=== PATIENT | female | born 1985 | race Caucasian/White ===

== ENCOUNTER → 2016-10-04 | Outpatient (REF) | payer BC | LOC: M LAB REF 16:53 | PROVIDERS: ATTEND Advanced Practice Midwife | DX: Z12.4 Encounter for screening for malignant neoplasm of cervix (principal) ==

== ENCOUNTER → 2016-11-19 | Outpatient (CLI) | payer BC ==
[2016-11-19 09:45] LABS: BASO % 0.2 % (0.0-1.0); EOS % 0.8 % (0.0-3.0); LARGE UNSTAINED CELL # 0.1 K/mm3 (0.0-0.4); LARGE UNSTAINED CELL % 1.5 % (0.0-4.0); LYMPH # 1.8 K/mm3 (1.5-6.5); LYMPH % 30.8 % (24.0-44.0); MEAN CORPUSCULAR HEMOGLOBIN 30.8 pg (27.0-33.0); MEAN CORPUSCULAR VOLUME 90.4 fl (80.0-96.0); MONO # 0.4 K/mm3 (0.0-0.8); MONO % 6.8 % (0.0-5.0); NEUTROPHILS # 3.4 K/mm3 (1.8-7.7); NEUTROPHILS % 59.9 % (36.0-66.0); PLATELET COUNT, AUTOMATED 311 k/mm3 (150-450); RED CELL DISTRIBUTION WIDTH 12.7 % (11.5-14.5); WHITE BLOOD COUNT 5.7 K/mm3 (4.0-10.0)
[2016-11-19 10:25] LABS: HBsAg Prenatal NEGATIVE (NEGATIVE)
== END ==
LOC: M LAB 08:42
PROVIDERS: ATTEND Advanced Practice Midwife
DX: Z36 Encounter for antenatal screening of mother (principal); Z3A.00 Weeks of gestation of pregnancy not specified

== ENCOUNTER → 2017-02-02 | Outpatient (CLI) | payer BC | LOC: M SMT 08:46 | PROVIDERS: ATTEND Specialist | DX: Z13.79 Encounter for other screening for genetic and chromosomal anomalies (principal) ==

== ENCOUNTER → 2017-02-25 | Outpatient (CLI) | payer BC ==
--- NOTE | 2017-02-25 10:02 | REP ---
Obstetric ultrasound for anatomy: There is a single intrauterine gestation in a breech presentation. There is movement and cardiac activity. The heart rate is 139 beats per minute. Placenta is anterior. There is no placenta previa or abruptio. The placenta is grade zero. The amniotic fluid volume subjectively is normal. This cervix measures 4.9 cm length. Gestational Age: By LMP: 19 w for d By Today's US: 20 w 2 d Weight: 349 gm/ 12th lbs, zero oz Wt 75 %ile for at 19 w 4 d The following anatomic structures are identified and are old. Intracranial lateral ventricles, choroid plexus, cerebellum, upper lip, lungs, diaphragm, stomach, cord insertion, three-vessel cord, kidneys, bladder, spine and upper lower extremities. Suboptimally demonstrated are the four-chamber view of the heart and the cardiac right and left ventricular outflow tracts. There is an echogenic focus within the left ventricle, likely artifact from the chorda tendineae. Followup study to reevaluate this suboptimally demonstrated anatomic structures might be considered. Otherwise, there are no anomalies. Signed by Sandro Molina MD 02/25/2017 09:54 A
== END ==
LOC: M RAD 06:39
PROVIDERS: ATTEND Specialist
DX: Z36.89 Encounter for other specified antenatal screening (principal); Z3A.20 20 weeks gestation of pregnancy

== ENCOUNTER → 2017-03-14 | Outpatient (CLI) | payer BC ==
--- NOTE | 2017-03-14 08:36 | REP ---
Clinical: Anatomical re-evaluation. Comparison: 02/25/2017 . Findings: Examination demonstrates a single live intrauterine in cephalic presentation. motion is identified by technologist. Placenta is noted anteriorly and grade zero without evidence for placenta previa or abruption. Amniotic fluid volume is normal. Cervix measures 3.8 cm in length and appears closed. Nuchal cord cannot be excluded. Gestational age by LMP 22 weeks 0 days with MARK 07/18/2017 . Gestational age by current measurements 22 weeks 5 days with MARK 07/13/2017. FHR equals 157 beats per minute. Estimated weight 539 grams ( 74th percentile). Anatomical assessment demonstrates normal structures including cranium, choroid plexus, cavum, cerebellum/posterior fossa, facial features, lungs, four-chamber heart/ventricular outflow tracts, diaphragm, stomach, cord insertion/three-vessel cord, kidneys/bladder, and spine. Impression: 1. Single live intrauterine in cephalic presentation demonstrating appropriate interval growth. Nuchal cord cannot be excluded. 2. Prominent chordae tendineae again noted. 3. In conjunction with prior examination anatomical assessment is otherwise complete and normal. Signed by Long Noel MD 03/14/2017 08:27 A
== END ==
LOC: M RAD 07:07
PROVIDERS: ATTEND Specialist
DX: Z34.80 Encounter for supervision of other normal pregnancy, unspecified trimester (principal)

== ENCOUNTER → 2017-03-31 | Outpatient (REF) | payer BC | LOC: M LAB REF 13:41 | PROVIDERS: ATTEND Advanced Practice Midwife | DX: Z34.83 Encounter for supervision of other normal pregnancy, third trimester (principal) ==

== ENCOUNTER → 2017-04-13 | Outpatient (CLI) | payer BC ==
[2017-04-13 13:33] LABS: MEAN CORPUSCULAR HEMOGLOBIN 29.7 pg (27.0-33.0); MEAN CORPUSCULAR HGB CONC 32.3 g/dl (32.0-36.5); MEAN CORPUSCULAR VOLUME 91.9 fl (80.0-96.0); PLATELET COUNT, AUTOMATED 331 10^3/uL (150-450); RED CELL DISTRIBUTION WIDTH 13.4 % (11.5-14.5); WHITE BLOOD COUNT 10.1 10^3/uL (4.0-10.0)
== END ==
LOC: M SMT 08:27
PROVIDERS: ATTEND Advanced Practice Midwife
DX: Z36.89 Encounter for other specified antenatal screening (principal); Z3A.00 Weeks of gestation of pregnancy not specified

== ENCOUNTER → 2017-04-15 | Outpatient (CLI) | payer BC | LOC: M LAB 07:09 | PROVIDERS: ATTEND Specialist | DX: Z34.83 Encounter for supervision of other normal pregnancy, third trimester (principal); Z3A.00 Weeks of gestation of pregnancy not specified ==

== ENCOUNTER → 2017-06-23 | Outpatient (REF) | payer BC | LOC: M LAB REF 13:04 | DX: Z36.85 Encounter for antenatal screening for Streptococcus B (principal); Z3A.00 Weeks of gestation of pregnancy not specified | CPT/HCPCS: 87081 ==

== ENCOUNTER 2017-07-13 07:47 | Inpatient (IN) | payer BC ==
[2017-07-13] MEDS ORDERED: FENTANYL 2MCG/ML ROPIVACAINE 0.2% IN 0.9% NACL 200ML IVBAG As Ordered (08:59)
[2017-07-13] MEDS ORDERED: LR 1,000 ML IV (09:00)
[2017-07-13 09:14] LABS: HEMATOCRIT 35.9 % (36.0-47.0); HEMOGLOBIN 12.2 g/dl (12.0-16.0); MEAN CORPUSCULAR HEMOGLOBIN 29.8 pg (27.0-33.0); MEAN CORPUSCULAR VOLUME 87.8 fl (80.0-96.0); PLATELET COUNT, AUTOMATED 218 10^3/uL (150-450); RED BLOOD COUNT 4.09 10^6/uL (4.00-5.40); RED CELL DISTRIBUTION WIDTH 14.4 % (11.5-14.5); WHITE BLOOD COUNT 15.5 10^3/uL (4.0-10.0)
[2017-07-13 09:42] LABS: AMPHETAMINES URINE REFLEX NEGATIVE (NEGATIVE); BARBITURATES URINE REFLEX NEGATIVE (NEGATIVE); BENZODIAZEPINES URINE REFLEX NEGATIVE (NEGATIVE); CANNABINOIDS URINE REFLEX NEGATIVE (NEGATIVE); COCAINE METABOLITE URINE REFLE NEGATIVE (NEGATIVE); METHADONE URINE REFLEX NEGATIVE (NEGATIVE); OPIATES URINE REFLEX NEGATIVE (NEGATIVE); PHENCYCLIDINE URINE REFLEX NEGATIVE (NEGATIVE)
[2017-07-13 09:43] LABS: TOTAL PROTEIN,RANDOM URINE 48.1 MG/DL (0.0-12.0)
[2017-07-13 09:44] LABS: ALT/SGPT 30 U/L (12-78); AST/SGOT 24 U/L (7-37); BILIRUBIN,TOTAL 0.3 MG/DL (0.2-1.0); GLOMERULAR FILTRATION RATE > 60.0 (>60); LDH LACTATE DEHYDROGENASE 221 U/L (84-246); URIC ACID 3.4 MG/DL (2.6-6.0)
[2017-07-13] MEDS ORDERED: diphenhydrAMINE INJ 50MG/ML VIAL (J1200) IV (11:30)
[2017-07-13] MEDS ORDERED: ONDANSETRON 4MG/2ML VIAL (J2405) IV ×2 (11:30→15:15)
[2017-07-13] MEDS ORDERED: REFRIGERATOR IV KEYS XX (11:30)
[2017-07-13] MEDS ORDERED: EPIDURAL COMMENT XX (11:30)
[2017-07-13] MEDS ORDERED: ePHEDrine SULFATE 25 MG/5 ML(5MG/ML) SYRINGE IV (11:30)
[2017-07-13] MEDS ORDERED: EPIDURAL/PCA KEYS XX (11:30)
[2017-07-13] MEDS ORDERED: LACTATED RINGER'S 1000 ML IV (11:30)
[2017-07-13] MEDS ORDERED: FENTANYL/ROPIVACAINE/NACL BAG 200 ML EPIDURAL (11:30)
[2017-07-13] MEDS ORDERED: NALOXONE INJ 0.4 MG/1 ML VIAL (J2310) IV (11:30)
[2017-07-13] MEDS: OXYTOCIN DRIP 30 UNITS in APPROPRIATE DILUENT 1 EA IV ×2 (11:40→19:11)
[2017-07-13] MEDS ORDERED: METHYLERGONOVINE MALEATE 0.2 MG TAB PO (15:15)
[2017-07-13] MEDS ORDERED: ACETAMINOPHEN 500 MG TAB PO (15:15)
[2017-07-13] MEDS ORDERED: MEASLES,MUMPS,RUBELLA VACCINE INJ (MMR-II) (90707) SC (15:15)
[2017-07-13] MEDS ORDERED: DOCUSATE SODIUM 100 MG CAP PO (15:15)
[2017-07-13] MEDS ORDERED: RHOGAM 300 MCG (1500 IU) INJ (J2790) IM (15:15)
[2017-07-13] MEDS: LACTATED RINGER'S 1000 ML IV (19:10)
[2017-07-13] MEDS: PRENATAL VITAMINS CHEWABLE TABLET PO (19:10)
[2017-07-14] MEDS: IBUPROFEN 800 MG TAB PO ×2 (07:57→17:58)
[2017-07-14] MEDS: PRENATAL VITAMINS CHEWABLE TABLET PO (07:57)
[2017-07-14] MEDS: DIBUCAINE 1% OINTMENT 30GM TOP (07:57)
[2017-07-15] MEDS: PRENATAL VITAMINS CHEWABLE TABLET PO (09:12)
[2017-07-15] MEDS: IBUPROFEN 800 MG TAB PO (09:14)
== END 2017-07-15 11:25 | disposition home or self-care (01) | DRG 560 ==
LOC: M LDO 07:47 → M LDI 08:35 → M OBS 16:35
PROC: 10E0XZZ Delivery of Products of Conception, External Approach (ICD-10-PCS; principal; 2017-07-13)
PROC: 0HQ9XZZ Repair Perineum Skin, External Approach (ICD-10-PCS; 2017-07-13)
DX: O70.0 First degree perineal laceration during delivery (principal); Z37.0 Single live birth; Z3A.39 39 weeks gestation of pregnancy

== ENCOUNTER → 2018-11-28 | Outpatient (REF) | payer BC ==
[~2018-11-28] MED LIST: MOTR200T44 PO; PRENTAB7 PO; TYLE500T78 PO
[2018-11-30 14:08] LABS: HPV HYBRID CAPTURE II Negative (Negative)
== END ==
LOC: M LAB REF 16:53
PROVIDERS: ATTEND Advanced Practice Midwife
DX: Z12.4 Encounter for screening for malignant neoplasm of cervix (principal)

== ENCOUNTER 2019-01-11 15:22 | Emergency (ER) | payer BC ==
[~2019-01-11] VITALS: Ht 165.1 cm; Wt 62.3 kg
[2019-01-11 16:15] LABS: BASO % 0.4 % (0.0-1.0); EOS # 0.1 10^3/uL (0.0-0.5); EOS % 0.7 % (0.0-3.0); HEMOGLOBIN 13.9 g/dl (12.0-15.5); LYMPH # 2.4 10^3/uL (1.5-5.0); LYMPH % 31.6 % (24.0-44.0); MEAN CORPUSCULAR HEMOGLOBIN 30.1 pg (27.0-33.0); MEAN CORPUSCULAR HGB CONC 33.1 g/dl (32.0-36.5); MEAN CORPUSCULAR VOLUME 90.9 fl (80.0-96.0); MONO # 0.5 10^3/uL (0.0-0.8); MONO % 7.1 % (0.0-5.0); NEUTROPHILS # 4.6 10^3/uL (1.5-8.5); NEUTROPHILS % 59.9 % (36.0-66.0); PLATELET COUNT, AUTOMATED 310 10^3/uL (150-450); RED BLOOD COUNT 4.62 10^6/uL (4.00-5.40); WHITE BLOOD COUNT 7.6 10^3/uL (4.0-10.0)
[2019-01-11 16:43] LABS: BLOOD UREA NITROGEN 12 MG/DL (7-18); CALCIUM LEVEL 9.7 MG/DL (8.5-10.1); CARBON DIOXIDE LEVEL 24 MEQ/L (21-32); CHLORIDE LEVEL 104 MEQ/L (98-107); CREATININE FOR GFR 0.64 MG/DL (0.55-1.30); GLOMERULAR FILTRATION RATE > 60.0 (>60); GLUCOSE, FASTING 84 MG/DL (70-100); POTASSIUM SERUM 3.8 MEQ/L (3.5-5.1); SODIUM LEVEL 141 MEQ/L (136-145)
[2019-01-11 17:47] LABS: HCG, SERUM QUANTITATIVE 12375 MIU/ML
[2019-01-11 19:36] VITALS: BP 135/72
--- NOTE | 2019-01-11 19:59 | REPVR ---
EXAM: US First Trimester, Transabdominal and US , Transvaginal EXAM DATE/TIME: 01/11/2019 6:30 PM CLINICAL HISTORY: 33 years old, female; Lmp or gestational age (in weeks): 8w 4d; Antepartum complications; Bleeding; ; Additional info: Vaginal bleeding during preg TECHNIQUE: Imaging protocol: Real-time transabdominal obstetrical ultrasound of the maternal pelvis and a first trimester , less than 14 weeks 0 days, with image documentation. Transvaginal imaging was used for better evaluation of the fetus and adnexa. COMPARISON: US OBS FOLL UP OR REPEAT EACH GES 03/14/2017 7:16 AM FINDINGS: GESTATION: Gestation: Endovaginally, there is a teardrop shaped fluid collection within the endometrial canal measuring 1.9 x 3.1 x 2 cm. . There is a yolk sac with an inner diameter of 0.54 cm. Heart rate: No cardiac activity was noted in the pole. BIOMETRY: Helper-Rump length: There is a pole with a crown-rump length measurement of 0.93 cm for a menstrual age of 7 weeks and 0 days. MATERNAL: Uterus: Transabdominally, the bladder is poorly distended which limits visualization of the uterus and adnexa. Transabdominally, there is a fluid collection noted within the endometrial canal. Cervix: Unremarkable. Right adnexa: Endovaginally, the right ovary measures 1.9 x 3.2 x 2.2 cm and contains a complex follicle with a corpus luteum cyst measuring 2.1 cm in maximum diameter. Peripheral vascularity noted within the margins of a corpus luteum cyst. Left adnexa: Endovaginally, the left ovary measures 3.6 x 1.1 x 1 cm. blood flow demonstrated in the left ovary on color Doppler examination. Intraperitoneal: No intraperitoneal free fluid. IMPRESSION: 1. Single intrauterine with estimated menstrual age of 7 weeks and 1 day . Abnormal shape of the gestational sac and absence of cardiac activity suggests demise. Correlate with the serum beta hCG trend Electronically signed by: Gail Gotti On 01/11/2019 19:59:32 PM
== END 2019-01-11 19:37 | disposition home or self-care (01) ==
LOC: M ED 15:22
DX: O02.1 Missed abortion (principal)

== ENCOUNTER → 2019-01-11 | Outpatient (CLI) | payer BC | LOC: M SMT 09:30 | PROVIDERS: ATTEND Obstetrics & Gynecology | DX: O20.0 Threatened abortion (principal) ==

== ENCOUNTER → 2019-01-13 | Outpatient (CLI) | payer BC | LOC: M LAB 08:05 | PROVIDERS: ATTEND Obstetrics & Gynecology | DX: O20.0 Threatened abortion (principal); Z3A.00 Weeks of gestation of pregnancy not specified ==

== ENCOUNTER → 2019-01-19 | Outpatient (CLI) | payer BC | LOC: M SMT 09:07 | PROVIDERS: ATTEND Advanced Practice Midwife | DX: O03.4 Incomplete spontaneous abortion without complication (principal) ==

== ENCOUNTER → 2019-01-25 | Outpatient (CLI) | payer BC | LOC: M SMT 09:41 | PROVIDERS: ATTEND Advanced Practice Midwife | DX: O03.4 Incomplete spontaneous abortion without complication (principal) ==

== ENCOUNTER → 2019-02-01 | Outpatient (CLI) | payer BC | LOC: M SMT 09:20 | PROVIDERS: ATTEND Advanced Practice Midwife | DX: O03.4 Incomplete spontaneous abortion without complication (principal) ==

== ENCOUNTER → 2019-04-17 | Outpatient (REF) | payer OTHER | LOC: M PLALAB 09:38 | PROVIDERS: ATTEND Specialist | DX: O03.9 Complete or unspecified spontaneous abortion without complication (principal) ==

== ENCOUNTER → 2019-04-19 | Outpatient (CLI) | payer BC | LOC: M PLALAB 15:23 | PROVIDERS: ATTEND Specialist | DX: O03.9 Complete or unspecified spontaneous abortion without complication (principal) ==

== ENCOUNTER → 2019-04-27 | Outpatient (CLI) | payer BC | LOC: M PLALAB 10:43 | PROVIDERS: ATTEND Specialist | DX: O03.9 Complete or unspecified spontaneous abortion without complication (principal) ==

== ENCOUNTER → 2019-06-12 | Outpatient (CLI) | payer BC | LOC: M PLALAB 13:13 | PROVIDERS: ATTEND Specialist | DX: N92.6 Irregular menstruation, unspecified (principal) ==

== ENCOUNTER → 2019-06-14 | Outpatient (CLI) | payer BC | LOC: M PLALAB 13:43 | PROVIDERS: ATTEND Specialist | DX: N92.6 Irregular menstruation, unspecified (principal) ==

== ENCOUNTER → 2019-06-25 | Outpatient (CLI) | payer BC | LOC: M PLALAB 13:14 | PROVIDERS: ATTEND Specialist | DX: Z00.00 Encounter for general adult medical examination without abnormal findings (principal) ==

== ENCOUNTER → 2020-01-14 | Outpatient (CLI) | payer BC | LOC: M PLALAB 13:44 | PROVIDERS: ATTEND Specialist | DX: O20.0 Threatened abortion (principal); Z3A.00 Weeks of gestation of pregnancy not specified ==

== ENCOUNTER → 2020-01-16 | Outpatient (CLI) | payer BC | LOC: M PLALAB 13:47 | PROVIDERS: ATTEND Specialist | DX: O20.0 Threatened abortion (principal) ==

== ENCOUNTER → 2020-02-18 | Outpatient (CLI) | payer BC ==
[2020-02-18 15:52] LABS: FREE T4 0.96 NG/DL (0.76-1.46); THYROID STIMULATING HORMONE 1.61 uIU/ML (0.358-3.740)
[2020-02-20 12:52] LABS: DRVV SCREEN 36.3 SEC; PTT LUPUS TYPE ANTICOAG SCREEN 0.9 (0-1.2)
[2020-02-25 13:07] LABS: ANTI THROMBIN 3 ANTIGEN IMMUNO 88 % (72-124); ANTI THROMBIN 3 FUNCT ACTIVITY 111 % (75-135); CARDIOLIPIN IGA ANTIBODY <9 APL U/mL (0-11); CARDIOLIPIN IGG ANTIBODY <9 GPL U/mL (0-14); CARDIOLIPIN IGM ANTIBODY 10 MPL U/mL (0-12); PROTEIN C ANTIGEN 91 % (60-150); PROTEIN C FUNCTIONAL ACTIVITY 108 % (73-180); PROTEIN S ANTIGEN FREE 71 % (57-157); PROTEIN S ANTIGEN TOTAL 83 % (60-150); PROTEIN S FUNCTIONAL ACTIVITY 103 % (63-140)
== END ==
LOC: M PLALAB 10:49
PROVIDERS: ATTEND Advanced Practice Midwife
DX: N96 Recurrent pregnancy loss (principal)
CPT/HCPCS: 36415; 84439; 84443; 85300; 85301; 85302; 85303; 85305; 85306; 85730; 86147; 87624; G0123

== ENCOUNTER → 2020-03-19 | Outpatient (REF) | payer BC | LOC: M PLALAB 13:45 | PROVIDERS: ATTEND Advanced Practice Midwife | DX: N91.2 Amenorrhea, unspecified (principal) ==

== ENCOUNTER → 2020-03-21 | Outpatient (CLI) | payer BC | LOC: M PLALAB 13:47 | PROVIDERS: ATTEND Specialist | DX: O20.0 Threatened abortion (principal); Z3A.00 Weeks of gestation of pregnancy not specified ==

== ENCOUNTER → 2020-03-25 | Outpatient (REF) | payer BC | LOC: M PLALAB 11:19 | PROVIDERS: ATTEND Advanced Practice Midwife | DX: N96 Recurrent pregnancy loss (principal) ==

== ENCOUNTER → 2020-04-01 | Outpatient (REF) | payer BC | LOC: M PLALAB 13:20 | PROVIDERS: ATTEND Advanced Practice Midwife | DX: N96 Recurrent pregnancy loss (principal) ==

== ENCOUNTER → 2020-04-03 | Outpatient (REF) | payer BC | LOC: M PLALAB 15:38 | PROVIDERS: ATTEND Advanced Practice Midwife | DX: N96 Recurrent pregnancy loss (principal) ==

== ENCOUNTER → 2020-04-09 | Outpatient (REF) | payer BC | LOC: M PLALAB 08:26 | PROVIDERS: ATTEND Advanced Practice Midwife | DX: O20.0 Threatened abortion (principal); Z53.9 Procedure and treatment not carried out, unspecified reason ==

== ENCOUNTER → 2020-05-09 | Outpatient (REF) | payer BC ==
[2020-05-09 15:39] LABS: HEMATOCRIT 38.8 % (36.0-47.0); HEMOGLOBIN 12.7 g/dl (12.0-15.5); MEAN CORPUSCULAR HEMOGLOBIN 29.7 pg (27.0-33.0); MEAN CORPUSCULAR HGB CONC 32.7 g/dl (32.0-36.5); MEAN CORPUSCULAR VOLUME 90.7 fl (80.0-96.0); PLATELET COUNT, AUTOMATED 362 10^3/uL (150-450); RED BLOOD COUNT 4.28 10^6/uL (4.00-5.40); WHITE BLOOD COUNT 8.5 10^3/uL (4.0-10.0)
[2020-05-09 17:09] LABS: HEPATITIS C VIRUS ABY INDEX 0.2 INDEX (<0.8); HIV 1&2 SCREEN CENTAUR NEGATIVE (NEGATIVE)
[2020-05-09 18:03] LABS: CHLAMYDIA DNA AMPLIFICATION NEGATIVE (NEGATIVE); GC DNA AMPLIFICATION NEGATIVE (NEGATIVE)
== END ==
LOC: M PLALAB 13:49
PROVIDERS: ATTEND Advanced Practice Midwife
DX: Z34.91 Encounter for supervision of normal pregnancy, unspecified, first trimester (principal)

== ENCOUNTER → 2020-05-19 | Outpatient (REF) | payer BC | LOC: M SFHCWAGY 17:05 | PROVIDERS: ATTEND Advanced Practice Midwife | DX: O26.899 Other specified pregnancy related conditions, unspecified trimester (principal) ==

== ENCOUNTER → 2020-06-03 | Outpatient (CLI) | payer BC | LOC: M WHC 17:49 | PROVIDERS: ATTEND Obstetrics & Gynecology | DX: Z34.92 Encounter for supervision of normal pregnancy, unspecified, second trimester (principal); Z3A.14 14 weeks gestation of pregnancy; Z53.9 Procedure and treatment not carried out, unspecified reason ==

== ENCOUNTER → 2020-06-06 | Outpatient (REF) | payer BC | LOC: M SFHCWAGY 13:13 | PROVIDERS: ATTEND Advanced Practice Midwife | DX: O26.22 Pregnancy care for patient with recurrent pregnancy loss, second trimester (principal) ==

== ENCOUNTER → 2020-06-19 | Outpatient (REF) | payer BC ==
[2020-06-20 14:04] LABS: APPEARANCE, URINE CLEAR (CLEAR); BACTERIA, URINE AUTO NEGATIVE (NEGATIVE); BILIRUBIN, URINE AUTO NEGATIVE (NEGATIVE); BLOOD, URINE BLOOD NEGATIVE (NEGATIVE); COLOR, URINE YELLOW (YELLOW); GLUCOSE, URINE (UA) AUTO NEGATIVE (NEGATIVE); KETONE, URINE AUTO NEGATIVE (NEGATIVE); LEUKOCYTE ESTERASE, URINE AUTO NEGATIVE (NEGATIVE); NITRITE, URINE AUTO NEGATIVE (NEGATIVE); PROTEIN, URINE AUTO NEGATIVE (NEGATIVE); RBC, URINE AUTO 1 /HPF (0-3); SPECIFIC GRAVITY URINE AUTO 1.016 (1.002-1.035); SQUAMOUS EPITHELIAL CELL UR AU 0 /HPF (0-6); UROBILINOGEN, URINE AUTO 0.2 mg/dL (0.0-2.0); WBC, URINE AUTO 7 /HPF (0-3)
== END ==
LOC: M SFHCWAGY 13:24
PROVIDERS: ATTEND Advanced Practice Midwife
DX: R39.15 Urgency of urination (principal)

== ENCOUNTER → 2020-07-02 | Outpatient (REF) | payer BC | LOC: M PLALAB 00:02 | PROVIDERS: ATTEND Obstetrics & Gynecology | DX: R82.71 Bacteriuria (principal); Z53.9 Procedure and treatment not carried out, unspecified reason ==

== ENCOUNTER → 2020-07-04 | Outpatient (REF) | payer BC | LOC: M SFHCWAGY 13:02 | PROVIDERS: ATTEND Obstetrics & Gynecology | DX: R82.71 Bacteriuria (principal) ==

== ENCOUNTER → 2020-07-11 | Outpatient (CLI) | payer BC ==
--- NOTE | 2020-07-11 11:15 | REP ---
INDICATION: ANATOMY COMPARISON: None. TECHNIQUE: Transabdominal obstetrical ultrasound with color Doppler evaluation. FINDINGS: Examination demonstrates a single live intrauterine in breech presentation. motion is identified by technologist. Placenta is noted posterior and grade 1 without evidence for placenta previa or abruption. Amniotic fluid volume is normal. Cervix measures 4.1 cm in length and appears closed.. Gestational age by LMP 19 weeks 6 days with MARK 11/29/2020. Gestational age by current measurements 20 weeks 2 days with MARK 11/26/2020. FHR equals 150 beats per minute. BPD: 4.7 cm at 20 weeks 1 day HC: 17.0 cm at 19 weeks 4 days AC: 14.9 cm at 20 weeks 1 day FL: 3.3 cm at 20 weeks 2 days HL: 3.3 cm at 21 weeks 0 days HC/AC: 1.14 Estimated weight 338 grams (65thpercentile). Anatomical assessment demonstrates normal structures including cranium, choroid plexus, cavum, cerebellum/posterior fossa, facial features, diaphragm, stomach, cord insertion/three-vessel cord, kidneys/bladder, spine, and extremities. IMPRESSION: Single live intrauterine in breech presentation demonstrating appropriate estimated weight. Limited evaluation of the heart/ventricular outflow tracts. Remainder of the anatomical assessment is complete and normal. <Electronically signed by Long Noel > 07/11/20 1111
== END ==
LOC: M WHC 09:49
PROVIDERS: ATTEND Advanced Practice Midwife
DX: O26.22 Pregnancy care for patient with recurrent pregnancy loss, second trimester (principal); Z3A.20 20 weeks gestation of pregnancy

== ENCOUNTER → 2020-08-15 | Outpatient (CLI) | payer BC ==
--- NOTE | 2020-08-15 11:46 | REP ---
INDICATION: F/U ANATOMY - MARK 11/29/20. COMPARISON: Comparison sonography July 11, 2020.. TECHNIQUE: Transabdominal obstetric sonography. FINDINGS: Scanning through the gravid uterus demonstrates a viable single intrauterine gestation in cephalic lie. motion is observed and heart rate is recorded at 142 beats per minute. A posterior placenta is seen, grade 1, without evidence of placenta previa. Closed cervical length is measured at 3.8 cm transabdominally. No extrauterine abnormality is observed. Amniotic fluid is subjectively normal. Four-chamber heart, left and right ventricular outflow tract views were obtained today and appear normal. In conjunction with the prior study, anatomic survey is felt to be complete.. Biometry chart: BPD 6.2 cm, 25 weeks 2 days Head circumference 23.0 cm, 25 weeks 0 days Abdominal circumference 20.9 cm, 25 weeks 3 days Femur length 4.5 cm, 25 weeks 0 days Humeral length 4.2 cm, 25 weeks 2 days HC AC ratio normal 1.10 Cephalic index normal 0.75 Estimated weight 786 g, 1 lb 11 oz, 58th percentile for 24 weeks 6 days IMPRESSION: Viable single intrauterine gestation at 25 weeks 1 days by today's composite sonographic criteria. MARK by today's sonography November 27, 2020. No complication identified. Expected gestational age estimate based on prior sonography 24 weeks 6 days. MARK by prior sonography November 29, 2020. <Electronically signed by Bubba Quintero > 08/15/20 1145
== END ==
LOC: M WHC 08:50
PROVIDERS: ATTEND Advanced Practice Midwife
DX: Z36.89 Encounter for other specified antenatal screening (principal); Z3A.22 22 weeks gestation of pregnancy

== ENCOUNTER → 2020-08-29 | Outpatient (REF) | payer BC ==
[2020-08-29 13:30] LABS: HEMATOCRIT 35.8 % (36.0-47.0); HEMOGLOBIN 11.6 g/dl (12.0-15.5); MEAN CORPUSCULAR HEMOGLOBIN 29.4 pg (27.0-33.0); MEAN CORPUSCULAR HGB CONC 32.4 g/dl (32.0-36.5); MEAN CORPUSCULAR VOLUME 90.9 fl (80.0-96.0); PLATELET COUNT, AUTOMATED 336 10^3/uL (150-450); RED BLOOD COUNT 3.94 10^6/uL (4.00-5.40); WHITE BLOOD COUNT 9.3 10^3/uL (4.0-10.0)
== END ==
LOC: M PLALAB 10:40
PROVIDERS: ATTEND Advanced Practice Midwife
DX: Z36.89 Encounter for other specified antenatal screening (principal); Z3A.22 22 weeks gestation of pregnancy

== ENCOUNTER → 2020-10-21 | Outpatient (REF) | payer BC ==
[2020-10-21 17:55] LABS: ALBUMIN 2.6 GM/DL (3.2-5.2); ALT/SGPT 107 U/L (12-78); BILIRUBIN,DIRECT < 0.1 MG/DL (0.0-0.2); BILIRUBIN,TOTAL 0.2 MG/DL (0.2-1.0); TOTAL PROTEIN 6.4 GM/DL (6.4-8.2)
== END ==
LOC: M PLALAB 14:35
PROVIDERS: ATTEND Advanced Practice Midwife
DX: L29.9 Pruritus, unspecified (principal); Z34.93 Encounter for supervision of normal pregnancy, unspecified, third trimester

== ENCOUNTER → 2020-10-28 | Outpatient (REF) | payer BC | LOC: M SFHCWAGY 16:52 | PROVIDERS: ATTEND Specialist | DX: L29.8 Other pruritus (principal) ==

== ENCOUNTER 2020-11-08 07:31 | Inpatient (IN) | payer BC ==
[~2020-11-08] VITALS: Ht 165.1 cm; Wt 81.4 kg
[2020-11-08] VITALS (11 sets, daily range): BP systolic 116–136; BP diastolic 55–79
[2020-11-08] MEDS ORDERED: URSO300C3 PO (07:52)
[2020-11-08] MEDS ORDERED: NOXI1TAB PO (07:53)
[2020-11-08 10:16] LABS: HEMATOCRIT 31.6 % (36.0-47.0); HEMOGLOBIN 10.1 g/dl (12.0-15.5); MEAN CORPUSCULAR HEMOGLOBIN 27.4 pg (27.0-33.0); MEAN CORPUSCULAR VOLUME 85.9 fl (80.0-96.0); PLATELET COUNT, AUTOMATED 252 10^3/uL (150-450); RED BLOOD COUNT 3.68 10^6/uL (4.00-5.40); WHITE BLOOD COUNT 9.7 10^3/uL (4.0-10.0)
[2020-11-08] MEDS: miSOPROStol 50MCG 1/2 TABLET PO SCH ×3 (10:17→18:23)
--- NOTE | 2020-11-08 16:07 | HPEPDOC ---
Obstetrical History & Physical General Date of Admission Nov 08, 2020 at 07:31 History of Present Illness 35yo at 37w0d presents for IOL for intrahepatic cholestasis of . Patient's been taking iriditis all 500 mg twice a day. She is also been receiving antepartum testing with weekly NSTs and serial growth ult rasounds. Chief Complaint: Induction of labor Information Provided By: Patient Age: 35 : 7 Livin Dating Final EDC: Nov 29, 2020 Final EDC by: 1st trimester (US) EGA at Admission: 37 Past Medical History Past Obstetrical History : Type of Delivery: Spontaneous Vaginal Del. Sex of Infant: Male [employer] History: No pertinent history Family History Significant Family History: No pertinent family hx Social History Marital Status: Family situation: Spouse/partner home Psychosocial History: No pertinent psych hx * Smoker: non-smoker Alcohol: Denies Drugs: denies Allergies Coded Allergies: No Known Allergies (Unverified , 07/13/17) Medications Scheduled Pnv No.95/Ferrous Fum/Folic AC ( Vitamins Tablet) 1 Tab Tab, 1 TAB PO DAILY Ursodiol (Ursodiol) 300 Mg Capsule, 1 CAP PO DAILY Vitamin D3/Folic Acid (Noxifol-D3 2,500 Unit-1 mg Tab) 2,500 Unit Tablet, 1 TAB PO DAILY Physical Examination Physical Examination GENERAL: Alert and oriented times three. BREAST: . ABDOMEN: Gravid and non-tender to touch. FETUS: Is vertex (VTX) by sterile vaginal examination (SVE), fetus is vertex (VTX) by Serjio. HEART RATE: Regular rate and rhythm. LUNGS: Clear to auscultation (CTA). Vital Signs/I&O Vital Signs Date Time Temp Pulse Resp B/P (MAP) Pulse Ox O2 Delivery O2 Flow Rate FiO2 11/08/20 14:20 98.0 77 18 116/55 (75) Laboratory Data 24H LABS Laboratory Tests 2 11/08/20 07:36: Serology Scanned Report Hepatitis B Testing 11/08/20 09:59: Nucleated Red Blood Cells % (auto) 0.0 11/08/20 10:19: Coronavirus (COVID-19)(PCR) NEGATIVE CBC/BMP Laboratory Tests 11/08/20 09:59 Pertinent Laboratoy Data Blood Type: O+ RBC Antibody Screen: Negative HIV: Negative Hepatitis B: Negative Rapid Plasma Reagin: Nonreactive Rubella: Immune Chlamydia/Gonorrhea: Negative Group B Streptococcus: Negative Glucose Tolerance Test: 123 Anatomy Ultrasound Normal Anatomy: Yes Placenta Previa: No Vaginal Examination Dilation: Fingertip Station: -3 Cervical Consistency: Soft Cervical Position: Posterior Presentation: Cephalic presentation Assessment Variability: Moderate Decelerations: None Tocometer Contractions: No Assessment/Plan Assessment 35-year-old 7 para 1 at 37 weeks induction labor for intrahepatic cholestasis of Reassuring status Plan Admit and orient. Server Systems Administrator and consent. Diet: Regular. Group B Streptococcus (GBS) negative. Labs and intravenous (IV) per unit protocol. Counseled on Pitocin and induction of labor (IOL). Anticipate normal spontaneous delivery (). C-S as appropriate. ROSA ISELA CURRY MD. Nov 08, 2020 16:07
[2020-11-08] MEDS ORDERED: LR 1,000 ML IV ONE (21:35)
[2020-11-08] MEDS ORDERED: LR 1,000 ML IV SCH ×2 (21:35→22:30)
[2020-11-08] MEDS ORDERED: OXYTOCIN 30 UNITS IN 0.9% NaCl 500ML IV BAG (J2590) As Ordered ONE ×2 (22:30→23:10)
[2020-11-08] MEDS ORDERED: OXYTOCIN DRIP 30 UNITS in IV 1 EA IV SCH (22:30)
[2020-11-08] MEDS ORDERED: FENTANYL 2MCG/ML ROPIVACAINE 0.2% IN 0.9% NACL 100ML IVBAG As Ordered ONE (22:44)
[2020-11-08] MEDS ORDERED: AZITHROMYCIN INJ 500MG VIAL (J0456 PER 500MG) As Ordered ONE (23:09)
[2020-11-08] MEDS ORDERED: ceFAZolin 2 GM/D5W 50 ML IV BAG (J0690 PER 500MG) As Ordered ONE (23:09)
[2020-11-08] MEDS ORDERED: BICITRA 30ML SOLN UDC PO ONE (23:10)
[2020-11-08] MEDS ORDERED: AZITHROMYCIN INJ 500 MG, VIAL MATE ADAPTER 1 EACH in NS 250 ML IV ONE (23:10)
[2020-11-08] MEDS ORDERED: ceFAZolin SOD 2 GM in IV 1 EA IV ONE (23:10)
[2020-11-08] MEDS ORDERED: MORPHINE PRES-FREE INJ 10 MG/10 ML VIAL (J2274) As Ordered ONE (23:13)
[2020-11-08] MEDS ORDERED: ONDANSETRON 4MG/2ML VIAL As Ordered ONE (23:30)
[2020-11-08] MEDS ORDERED: dexameTHASONE 4 MG/ML 1ML VIAL (J1100 PER 1MG) As Ordered ONE (23:30)
[2020-11-08] MEDS ORDERED: propofoL 200 MG/20 ML VIAL As Ordered ONE (23:31)
[2020-11-08] MEDS ORDERED: fentaNYL 100 MCG/2 ML INJECTION (J3010) As Ordered ONE (23:49)
[2020-11-08] MEDS ORDERED: OXYTOCIN INJ 10 UNITS/ML VIAL (J2590) As Ordered ONE (23:54)
[2020-11-09] VITALS (9 sets, daily range): BP systolic 114–140; BP diastolic 56–74
[2020-11-09] MEDS ORDERED: KETOROLAC 60MG 2ML VIAL As Ordered ONE (00:01)
[2020-11-09] MEDS ORDERED: KETOROLAC 30 MG/ML 1ML VIAL IV PRN (00:15)
[2020-11-09] MEDS ORDERED: NALBUPHINE HCL 10 MG/ML AMP (J2300) IV PRN (00:15)
[2020-11-09] MEDS ORDERED: oxyCODONE 5MG TAB PO PRN (00:15)
[2020-11-09] MEDS ORDERED: HYDROMORPHONE HCL 0.5 MG/ 0.5 ML SYRINGE (J1170 PER 1) IV PRN (00:15)
[2020-11-09] MEDS ORDERED: fentaNYL 100 MCG/2 ML INJECTION (J3010) IV PRN (00:15)
[2020-11-09] MEDS ORDERED: ONDANSETRON 4MG/2ML VIAL IV PRN ×2 (00:15→00:40)
[2020-11-09] MEDS ORDERED: SUCCINYLCHOLINE 100 MG/5 ML SYRINGE (J0330) As Ordered ONE (00:23)
[2020-11-09] MEDS ORDERED: MEPERIDINE INJ 25 MG/ML VIAL (J2175) As Ordered ONE (00:26)
[2020-11-09] MEDS ORDERED: RHOGAM 300 MCG (1500 IU) INJ (J2790) IM SCH (00:40)
[2020-11-09] MEDS: LR 1,000 ML IV SCH ×3 (00:40→16:40)
[2020-11-09] MEDS ORDERED: MEASLES,MUMPS,RUBELLA VACCINE INJ (MMR-II) (90707) SC SCH (00:40)
[2020-11-09] MEDS ORDERED: MOM 30ML SUSPENSION UDC PO PRN (00:40)
[2020-11-09] MEDS ORDERED: NALOXONE INJ 0.4MG/1ML VIAL (J2310 PER 1MG) IV PRN (00:40)
[2020-11-09] MEDS ORDERED: EPIDURAL/PCA KEYS XX PRN (00:40)
[2020-11-09] MEDS ORDERED: OXYTOCIN DRIP 30 UNITS in IV 1 EA IV SCH (00:40)
[2020-11-09] MEDS ORDERED: MORPHINE 1MG/ML IN 0.9% NACL 100ML IV BAG IV PRN (00:40)
[2020-11-09] MEDS ORDERED: SIMETHICONE 80MG CHEW TAB PO PRN (00:40)
[2020-11-09] MEDS ORDERED: NS 1,000 ML IV SCH (00:40)
[2020-11-09] MEDS ORDERED: diphenhydrAMINE 50MG/ML VIAL (J1200) IV PRN (00:40)
[2020-11-09] MEDS: MEPERIDINE INJ 25 MG/ML VIAL (J2175) IV PRN ×2 (00:43→00:48)
[2020-11-09] MEDS ORDERED: PERCOCET 5MG/325MG TAB PO PRN (01:55)
[2020-11-09] MEDS: KETOROLAC 30 MG/ML 1ML VIAL IV SCH ×3 (05:58→18:07)
[2020-11-09] MEDS: PRENATAL VITAMINS CHEWABLE TABLET PO SCH (08:25)
[2020-11-09] MEDS: DOCUSATE SODIUM 100MG CAPSULE PO SCH ×2 (08:25→21:23)
[2020-11-09] MEDS: PERCOCET 5MG/325MG TAB PO PRN ×2 (08:54→21:24)
--- NOTE | 2020-11-09 11:02 | IPNPDOC ---
Progress Note Date of Service: Nov 09, 2020 Day#: 1 Progress Note SUBJECT: Doing well without complaints. Ambulating, voiding and pain is well-c ontrolled. Reports minimal lochia. OBJECTIVE: VITAL SIGNS: Within normal limits, afebrile. Alert and oriented times three. Abdomen: Fundus firm at U-2. Soft, NTTP. Incision: dressed Ext: neg calf tenderness. ASSESSMENT: /postoperative day #1 status post delivery. Recovering in stable condition. PLAN: 1. Continue routine /postoperative care 2. Discharge plans for tomorrow VS, I&O, 24H, Fishbone Vital Signs/I&O Vital Signs Date Time Temp Pulse Resp B/P (MAP) Pulse Ox O2 Delivery O2 Flow Rate FiO2 11/09/20 09:24 16 Room Air 11/09/20 06:00 98.4 88 114/56 (75) 11/09/20 03:42 98 I&O- Last 24 Hours up to 6 AM 11/09/20 06:00 Intake Total 1100 ml Output Total 1525 ml Balance -425 ml ROSA ISELA CURRY MD. Nov 09, 2020 11:02
--- NOTE | 2020-11-09 11:02 | ROOPDOC ---
[facility] Report Of Operation Report of Operation DATE OF PROCEDURE: 11/08/20 SURGEON: Lisa Coughlin M.D. BODILY INJURY ADJUSTER: None PROCEDURE: Primary section PREOPERATIVE DIAGNOSIS: 1. Breech in labor 2. Cholestasis of POSTOPERATIVE DIAGNOSIS: 1. Breech in labor 2. Cholestasis of ANESTHESIA: Gen. INDICATION OF OPERATION: This patient presented for scheduled induction 37 weeks with cholestasis of . Induction was initiated with oral misoprostol. Spontaneous rupture of membranes initially was cleared and became meconium stain. At the time of rupture she was 3 cm dilated 90% effaced. Patient requested for epidural. She was reexamined and was noted to be 7-8 cm dilated and breech presentation. This was confirmed by ultrasound. She was consented for a primary section for breech presentation. Patient was unable to tolerate spinal anesthesia, therefore undergoing general anesthesia. ESTIMATED BLOOD LOSS: 600 mL URINE OUTPUT: 125 mL INTRAVENOUS FLUIDS: 800 mL of lactated Ringer's solution PREOPERATIVE ANTIBIOTICS: 2 g of Ancef and 500 azithromycin OPERATIVE FINDINGS: Liveborn male infant, Apgars 9 and 9. SPECIMENS: None DESCRIPTION OF PROCEDURE: After informed consent was obtained and written consent was reviewed. The patient was brought to the operating room was placed under general anesthesia. Patient was then rapidly prepped and draped in the normal sterile fashion. Pfannenstiel skin incision was made and this was c arried down to the underlying rectus fascia. The fascia was then scored and this incision was extended bilaterally. The fascia was then dissected off the underlying rectus muscle superiorly and inferiorly. The rectus muscles were then in the midline. The peritoneum is then entered. Vesicouterine peritoneum was then tented and excised and a bladder flap was created. Mobius retractor was then placed. Next, a curvilinear incision was then made in the lower uterine segment. breech was brought to the level of the incision atraumatically followed by delivery lower extremities then delivered and scapular systolic delivery of extremities and corpus. The cord was clamped x2. The was brought over to the warmer with a good cry. Placenta was drained and delivered grossly intact. The uterus was cleared of all clots and debris and the uterine incision was then closed using 0 Vicryl in a running locking fashion followed by a second layer of 0 Vicryl in a running nonlocking fashion for imbrication. The abdomen suctioned. Surgical sites reinspected and noted be hemostatic. The retractor was then removed. The anterior peritoneum was then reapproximated with 3-0 Vicryl. The rectus muscles were reapproximated 3-0 Vicryl. The fascia was then closed using 0 Vicryl in a running nonlocking fashion. The subcutaneous tissues was then irrigated and suctioned. Subcutaneous tissue was reapproximated using 3-0 Vicryl. Several subdermal stitch is placed using 3-0 Vicryl and the skin was closed with 4-0 Monocryl and subcuticular fashion. This incision was then cleaned and dried and was dressed. The patient was awakened from general anesthesia and then taken to recovery in stable condition. All counts were correct. The couple has decided to name the Darren. LISA COUGHLIN MD. Nov 09, 2020 11:02
[2020-11-10 02:00] VITALS: BP 123/63
[2020-11-10] MEDS: IBUPROFEN 800 MG TAB PO SCH ×3 (02:16→18:03)
[2020-11-10] MEDS ORDERED: IBUP80TA PO (04:34)
[2020-11-10] MEDS ORDERED: PERCOCET PO (04:34)
[2020-11-10 06:00] VITALS: BP 113/64
[2020-11-10] MEDS: PERCOCET 5MG/325MG TAB PO PRN ×2 (06:11→19:20)
[2020-11-10 07:30] LABS: HEMATOCRIT 23.8 % (36.0-47.0); MEAN CORPUSCULAR HEMOGLOBIN 27.8 pg (27.0-33.0); MEAN CORPUSCULAR HGB CONC 31.9 g/dl (32.0-36.5); MEAN CORPUSCULAR VOLUME 87.2 fl (80.0-96.0); PLATELET COUNT, AUTOMATED 251 10^3/uL (150-450); RED BLOOD COUNT 2.73 10^6/uL (4.00-5.40); WHITE BLOOD COUNT 15.3 10^3/uL (4.0-10.0)
[2020-11-10 07:35] LABS: HEMOGLOBIN 7.6 g/dl (12.0-15.5)
[2020-11-10] MEDS: PRENATAL VITAMINS CHEWABLE TABLET PO SCH (08:35)
[2020-11-10] MEDS: DOCUSATE SODIUM 100MG CAPSULE PO SCH ×2 (08:35→20:07)
[2020-11-10 10:00] VITALS: BP 136/65
[2020-11-10 18:00] VITALS: BP 143/66
[2020-11-10 22:00] VITALS: BP 155/70
[2020-11-11] MEDS: IBUPROFEN 800 MG TAB PO SCH ×2 (02:27→10:48)
[2020-11-11 06:00] VITALS: BP 125/65
[2020-11-11] MEDS: DOCUSATE SODIUM 100MG CAPSULE PO SCH (09:09)
[2020-11-11] MEDS: PRENATAL VITAMINS CHEWABLE TABLET PO SCH (09:09)
[2020-11-11] MEDS ORDERED: FERR324T21 PO (09:13)
--- NOTE | 2020-11-11 09:24 | DS.PDOC ---
Discharge Summary General Date of Admission Nov 08, 2020 at 07:31 Date of Discharge 11/11/20 Attending Physician: ROSA ISELA CURRY MD. Discharge Summary PROCEDURES PERFORMED DURING STAY: Primary section. ADMITTING DIAGNOSES: 1. IUP at 37 weeks gestation. 2. cholestasis of DISCHARGE DIAGNOSES: 1. Day 3 postoperative. COMPLICATIONS/CHIEF COMPLAINT: IOL. HISTORY OF PRESENT ILLNESS: Kamala is a 35-year-old female who presented for an IOL for cholestasis of . She received cytotec and IV Pitocin for induction. She ruptured and was found to have thick meconium stained fluid. After exam she was found to be in breech presentation. She had a primary section due to active labor and breech presentation. She has been doing well. She did have an episode of dizziness while in the shower. Denies anymore dizziness currently. Has been ambulating, having a regular diet and voiding without difficulty. without any concerns. DISCHARGE MEDICATIONS: Please see below. ALLERGIES: Please see below. PHYSICAL EXAMINATION ON DISCHARGE: VITAL SIGNS: Please see below. GENERAL: Alert and oriented. Sitting up in bed. RESPIRATORY EXAMINATION: regular rate and rhythm. No use of accessory muscles. ABDOMINAL EXAMINATION: Fundus is firm. Dressing is intact without erythema. EXTREMITIES: Generalized edema bilaterally SKIN: dry, warm, without rash or lesions LABORATORY DATA: Please see below. ACTIVITY: Pelvic rest. DIET: regular DISCHARGE INSTRUCTIONS: 1. Patient discharged to home. 2. Scripts sent to pharmacy including iron supplements. 3. Education done on pain management, signs of infection, cleaning incision, hemorrhage, DVT, PE, mastitis, pelvic rest, depression. 4. Iron to be started BID. DISCHARGE CONDITION: Stable. Vital Signs/I&Os Vital Signs Date Time Temp Pulse Resp B/P (MAP) Pulse Ox O2 Delivery O2 Flow Rate FiO2 11/11/20 06:00 97.1 94 18 125/65 (85) 100 Room Air Laboratory Data CBC/BMP Item Value Date Time White Blood Count 15.3 10^3/uL H 11/10/20 06 Red Blood Count 2.73 10^6/uL L 11/10/20 06 Hemoglobin 7.6 g/dl L # 11/10/20 06 Hematocrit 23.8 % L 11/10/20 06 Mean Corpuscular Hemoglobin 27.8 pg 11/10/20 06 Mean Corpuscular Volume 87.2 fl 11/10/20 0658 Mean Corpuscular Hemoglobin Concent 31.9 g/dl L 11/10/20 0658 Red Cell Distribution Width 15.1 % H 11/10/20 06 Platelet Count 251 10^3/uL 11/10/20 0658 Discharge Medications Scheduled Ferrous Gluconate (Ferrous Gluconate) 324 Mg Tablet, 1 TAB PO BID for iron Ibuprofen (Ibuprofen) 800 Mg Tablet, 800 MG PO Q8H Pnv No.95/Ferrous Fum/Folic AC ( Vitamins Tablet) 1 Tab Tab, 1 TAB PO DAILY, (Reported) Scheduled PRN Oxycodone/Acetaminophen (Oxycodone-Acetaminophen 5-325) 1 Each Tablet, 1 TAB PO Q4H PRN for MILD/MODERATE PAIN (PS 1-7) Allergies Coded Allergies: No Known Allergies (Unverified , 07/13/17) PAULO DIAS CNM Nov 11, 2020 09:23
[2020-11-16] MEDS ORDERED: DICL500C PO (10:57)
== END 2020-11-11 13:35 | disposition home or self-care (01) | DRG 540 ==
LOC: M LDI 07:31 → M OBS 11-09 00:51
PROVIDERS: ADMIT Obstetrics & Gynecology; ATTEND Obstetrics & Gynecology
PROC: 3E0P7GC Introduction of Other Therapeutic Substance into Female Reproductive, Via Natural or Artificial Opening (ICD-10-PCS; 2020-11-08)
PROC: 10D00Z1 Extraction of Products of Conception, Low, Open Approach (ICD-10-PCS; principal; 2020-11-09 00:06)
DX: O26.613 Liver and biliary tract disorders in pregnancy, third trimester (principal); Z3A.37 37 weeks gestation of pregnancy; Z37.0 Single live birth; K83.1 Obstruction of bile duct; O77.0 Labor and delivery complicated by meconium in amniotic fluid; O64.1XX0 Obstructed labor due to breech presentation, not applicable or unspecified

== ENCOUNTER → 2021-03-31 | Outpatient (REF) | payer BC ==
[~2021-03-31] MED LIST changes: +DICL500C PO; +FERR324T21 PO; +IBUP80TA PO; +NOXI1TAB PO; +PERCOCET PO; +URSO300C3 PO
== END ==
LOC: M SFHCWAGY 15:03
PROVIDERS: ATTEND Advanced Practice Midwife
DX: Z12.4 Encounter for screening for malignant neoplasm of cervix (principal)

== ENCOUNTER → 2022-05-31 | Outpatient (CLI) | payer BC | LOC: M WHC 08:24 | PROVIDERS: ATTEND Advanced Practice Midwife | DX: Z12.31 Encounter for screening mammogram for malignant neoplasm of breast (principal); R92.2 Inconclusive mammogram ==

== ENCOUNTER → 2022-06-17 | Outpatient (CLI) | payer BC | LOC: M WHC 08:22 | PROVIDERS: ATTEND Advanced Practice Midwife | DX: R92.2 Inconclusive mammogram (principal) | CPT/HCPCS: 76642; 77065; G0279 ==

== ENCOUNTER → 2022-09-03 | Outpatient (REF) | payer BC | LOC: M LAB REF 12:28 | PROVIDERS: ATTEND Physician Assistant | DX: J02.9 Acute pharyngitis, unspecified (principal) ==

== ENCOUNTER → 2022-12-02 | Outpatient (CLI) | payer BC | LOC: M WUC 10:15 | PROVIDERS: ATTEND Nurse Practitioner Family | DX: M25.511 Pain in right shoulder (principal); R07.82 Intercostal pain ==

== ENCOUNTER → 2022-12-21 | Outpatient (CLI) | payer BC | LOC: M WHC 08:14 | PROVIDERS: ATTEND Advanced Practice Midwife | DX: Z12.31 Encounter for screening mammogram for malignant neoplasm of breast (principal) ==

== ENCOUNTER → 2023-06-10 | Outpatient (REF) | payer BC ==
[2023-06-10 14:17] LABS: APPEARANCE, URINE HAZY (CLEAR); BACTERIA, URINE AUTO 1+ (NEGATIVE); BILIRUBIN, URINE AUTO NEGATIVE (NEGATIVE); BLOOD, URINE BLOOD NEGATIVE (NEGATIVE); COLOR, URINE AMBER (YELLOW); GLUCOSE, URINE (UA) AUTO NEGATIVE (NEGATIVE); KETONE, URINE AUTO TRACE mg/dL (NEGATIVE); LEUKOCYTE ESTERASE, URINE AUTO 1+ (NEGATIVE); MUCUS, URINE SMALL (NEGATIVE); NITRITE, URINE AUTO NEGATIVE (NEGATIVE); PROTEIN, URINE AUTO 1+ mg/dL (NEGATIVE); RBC, URINE AUTO 4 /HPF (0-3); SPECIFIC GRAVITY URINE AUTO 1.027 (1.002-1.035); SQUAMOUS EPITHELIAL CELL UR AU 6 /HPF (0-6); WBC, URINE AUTO 21 /HPF (0-3)
== END ==
LOC: M PLALAB 09:12
PROVIDERS: ATTEND Advanced Practice Midwife
DX: Z01.419 Encounter for gynecological examination (general) (routine) without abnormal findings (principal); Z12.4 Encounter for screening for malignant neoplasm of cervix; Z11.51 Encounter for screening for human papillomavirus (HPV); R82.90 Unspecified abnormal findings in urine
CPT/HCPCS: 81001; 87086; G0123

== ENCOUNTER → 2023-06-20 | Outpatient (REF) | payer BC ==
[2023-06-20 13:01] LABS: APPEARANCE, URINE CLEAR (CLEAR); BACTERIA, URINE AUTO NEGATIVE (NEGATIVE); BILIRUBIN, URINE AUTO NEGATIVE (NEGATIVE); BLOOD, URINE BLOOD NEGATIVE (NEGATIVE); COLOR, URINE STRAW (YELLOW); GLUCOSE, URINE (UA) AUTO NEGATIVE (NEGATIVE); KETONE, URINE AUTO NEGATIVE (NEGATIVE); LEUKOCYTE ESTERASE, URINE AUTO TRACE (NEGATIVE); NITRITE, URINE AUTO NEGATIVE (NEGATIVE); PROTEIN, URINE AUTO NEGATIVE (NEGATIVE); RBC, URINE AUTO 1 /HPF (0-3); SPECIFIC GRAVITY URINE AUTO 1.009 (1.002-1.035); SQUAMOUS EPITHELIAL CELL UR AU 0 /HPF (0-6); UROBILINOGEN, URINE AUTO 0.2 mg/dL (0.0-2.0); WBC, URINE AUTO 14 /HPF (0-3)
== END ==
LOC: M LAB REF 11:56
PROVIDERS: ATTEND Internal Medicine
DX: N39.0 Urinary tract infection, site not specified (principal)

== ENCOUNTER → 2023-06-20 | Outpatient (CLI) | payer BC | LOC: M WUC 11:48 | PROVIDERS: ATTEND Internal Medicine | DX: M62.831 Muscle spasm of calf (principal) ==

== ENCOUNTER → 2023-07-25 | Outpatient (REF) | payer BC ==
[2023-07-25 13:35] LABS: APPEARANCE, URINE CLEAR (CLEAR); BACTERIA, URINE AUTO NEGATIVE (NEGATIVE); BILIRUBIN, URINE AUTO NEGATIVE (NEGATIVE); BLOOD, URINE BLOOD NEGATIVE (NEGATIVE); COLOR, URINE YELLOW (YELLOW); GLUCOSE, URINE (UA) AUTO NEGATIVE (NEGATIVE); KETONE, URINE AUTO NEGATIVE (NEGATIVE); LEUKOCYTE ESTERASE, URINE AUTO NEGATIVE (NEGATIVE); NITRITE, URINE AUTO NEGATIVE (NEGATIVE); PROTEIN, URINE AUTO NEGATIVE (NEGATIVE); RBC, URINE AUTO 0 /HPF (0-3); SPECIFIC GRAVITY URINE AUTO 1.005 (1.002-1.035); SQUAMOUS EPITHELIAL CELL UR AU 0 /HPF (0-6); UROBILINOGEN, URINE AUTO 0.2 mg/dL (0.0-2.0); WBC, URINE AUTO 0 /HPF (0-3)
== END ==
LOC: M SMT 13:10
PROVIDERS: ATTEND Urology
DX: R82.81 Pyuria (principal)

== ENCOUNTER → 2023-08-11 | Outpatient (CLI) | payer BC | LOC: M RAD 08:54 | PROVIDERS: ATTEND Urology | DX: R82.81 Pyuria (principal) ==